=== PATIENT | female | born 1975 | race Caucasian/White ===

== ENCOUNTER 2017-10-30 21:12 | Emergency (ER) | payer BC ==
[2017-10-30 22:21] LABS: #Basophils 0.1 thou/uL (0.0-0.2); #Eosinphils 0.2 thou/uL (0.0-0.7); #Lymphocytes 3.7 thou/uL (1.20-3.40); #Monocytes 1.2 thou/uL (0.11-0.59); #Neutrophils 6.3 thou/uL (1.40-6.50); %Basophils 0.6 % (0.0-1.0); %Eosinophils 1.7 % (0.0-10.0); %Lymphocytes 32.5 % (21.0-51.0); %Monocytes 10.1 % (0.0-10.0); %Neutrophils 55.1 % (42.0-75.0); Hemoglobin 14.2 g/dL (12.0-16.0); Mean Corpuscular HGB CONC 33.5 g/dL (32.0-36.0); Mean Corpuscular Hemoglobin 29.4 pg (27.0-31.0); Mean Corpuscular Volume 87.8 fl (81.0-99.0); Mean Platelet Volume 6.9 fL (7.4-10.4); Platelet Count 396 thou/uL (130-400); RBC Distribution Width 11.4 % (11.5-14.5); Red Blood Cell (RBC) Count 4.83 mill/uL (4.20-5.40); White Blood Cell (WBC) Count 11.4 thou/uL (4.8-10.8)
[2017-10-30 22:41] LABS: ALT (SGPT) 47 U/L (8-55); AST (SGOT) 28 U/L (5-34); Albumin 4.2 g/dL (3.5-5.0); Alkaline Phosphatase 72 U/L (40-150); Anion Gap 13 mmol/L (10-20); BUN (Urea Nitrogen) 13 mg/dL (7.0-18.7); Bilirubin, Total 0.4 mg/dL (0.2-1.2); Calc. Creatinine Clearance 0 mL/min (70-130); Calcium 9.1 mg/dL (7.8-10.44); Carbon Dioxide 25 mmol/L (22-29); Chloride 105 mmol/L (98-107); Estimated GFR-MDRD 77; Globulin 3.3 g/dL (2.4-3.5); Glucose 134 mg/dL (70-105); Potassium 3.6 mmol/L (3.5-5.1); Protein, Total 7.5 g/dL (6.0-8.3); Sodium 139 mmol/L (136-145)
[2017-10-30 23:43] LABS: CKMB 1.2 ng/mL (0-6.6); Troponin I Less than 0.010 ng/mL (< 0.028)
--- NOTE | 2017-10-31 | RAD ---
PORTABLE UPRIGHT FRONTAL CHEST RADIOGRAPH 10/30/17 COMPARISON: None. HISTORY: Left arm pain and nausea, chest wall pain. FINDINGS: Lungs are clear. Heart and mediastinal contours are grossly unremarkable. IMPRESSION: No acute findings. POS: [facility]
--- NOTE | 2017-11-02 18:04 | EKG ---
Test Reason : Blood Pressure : / mmHG Vent. Rate : 090 BPM Atrial Rate : 090 BPM P-R Int : 146 ms QRS Dur : 088 ms QT Int : 374 ms P-R-T Axes : 021 -12 009 degrees QTc Int : 457 ms Normal sinus rhythm Moderate voltage criteria for LVH, may be normal variant Nonspecific ST and T wave abnormality Abnormal ECG Confirmed by LITZY PLUNKETT, VERNELL ([id number]), purchasing expeditor WATSON AMADO ([id number]) on 11/02/2017 6:03:40 PM Referred By: Confirmed By:VERNELL MCGHEE MD
== END 2017-10-31 00:21 | disposition home or self-care (01) ==
LOC: ERS 21:12
DX: R07.89 Other chest pain (principal); F98.8 Other specified behavioral and emotional disorders with onset usually occurring in childhood and adolescence; F41.9 Anxiety disorder, unspecified; I10 Essential (primary) hypertension; Z79.899 Other long term (current) drug therapy
CPT/HCPCS: 36415; 71045; 80053; 82553; 84484; 85025; 93005

== ENCOUNTER 2019-04-22 08:11 | Outpatient (CLI) | payer BC ==
--- NOTE | 2019-04-22 09:52 | CT ---
CT ABDOMEN WITH IV CONTRAST: INDICATION: Abdominal distention. FINDINGS: Lung bases clear. Liver, spleen, and pancreas unremarkable. Stomach and duodenum unremarkable. Post cholecystectomy clips are noted. Adrenal glands normal. Kidneys unremarkable. Visualized bowel loops unremarkable. Small and large bowel are not adequately evaluated on this abdo men-only exam. Etiology for abdominal distention is not apparent on the abdomen study; however, lowe r abdomen and pelvis are not assessed on this exam. Aorta is normal caliber. IMPRESSION: Unremarkable CT abdomen. POS: [facility]
== END 2019-04-22 08:12 | disposition home or self-care (01) ==
LOC: BICCT 08:11
PROVIDERS: ATTEND Family Medicine
DX: E16.1 Other hypoglycemia (principal); R14.0 Abdominal distension (gaseous)
CPT/HCPCS: 74160

== ENCOUNTER 2019-06-08 10:34 | Emergency (ER) | payer BC ==
[2019-06-08 11:18] LABS: #Eosinphils 0.1 thou/uL (0.0-0.7); #Monocytes 0.8 thou/uL (0.11-0.59); #Neutrophils 6.4 thou/uL (1.40-6.50); %Basophils 0.4 % (0.0-1.0); %Eosinophils 1.2 % (0.0-10.0); %Monocytes 7.8 % (0.0-10.0); %Neutrophils 61.7 % (42.0-75.0); Hemoglobin 15.2 g/dL (12.0-16.0); Mean Corpuscular HGB CONC 33.5 g/dL (32.0-36.0); Mean Corpuscular Hemoglobin 29.9 pg (27.0-31.0); Platelet Count 453 thou/uL (130-400); RBC Distribution Width 11.1 % (11.5-14.5); Red Blood Cell (RBC) Count 5.08 mill/uL (4.20-5.40); White Blood Cell (WBC) Count 10.4 thou/uL (4.8-10.8)
--- NOTE | 2019-06-08 11:39 | RAD ---
CHEST 1 VIEW: Date: 06/08/19 HISTORY: Chest pain. COMPARISON: Radiograph dated 10/30/17. FINDINGS: Lungs are clear. No pneumothorax or effusion. Cardiac silhouette and mediastinal contour within nadiya l limits. IMPRESSION: No acute intrathoracic abnormality. POS: [facility]
[2019-06-08 11:42] LABS: ALT (SGPT) 23 U/L (8-55); AST (SGOT) 16 U/L (5-34); Albumin 4.5 g/dL (3.5-5.0); Alkaline Phosphatase 67 U/L (40-110); Anion Gap 13 mmol/L (10-20); BUN (Urea Nitrogen) 12 mg/dL (7.0-18.7); Bilirubin, Total 0.5 mg/dL (0.2-1.2); Calc. Creatinine Clearance 0 mL/min (70-130); Calcium 9.6 mg/dL (7.8-10.44); Carbon Dioxide 29 mmol/L (22-29); Chloride 101 mmol/L (98-107); Estimated GFR-MDRD 61; Globulin 2.9 g/dL (2.4-3.5); Glucose 94 mg/dL (70-105); Potassium 5.2 mmol/L (3.5-5.1); Protein, Total 7.4 g/dL (6.0-8.3); Sodium 138 mmol/L (136-145)
--- NOTE | 2019-06-13 13:41 | EKG ---
Test Reason : CHESTPAIN Blood Pressure : / mmHG Vent. Rate : 071 BPM Atrial Rate : 071 BPM P-R Int : 146 ms QRS Dur : 086 ms QT Int : 386 ms P-R-T Axes : 026 -14 004 degrees QTc Int : 419 ms Normal sinus rhythm Voltage criteria for left ventricular hypertrophy Abnormal ECG Confirmed by RIZWAN HASTINGS ([id number]), metropolitan editor WATSON AMADO ([id number]) on 06/13/2019 1:41:14 PM Referred By: Confirmed By:RIZWAN HASTINGS
== END 2019-06-08 12:44 | disposition home or self-care (01) ==
LOC: ERS 10:34
DX: R07.89 Other chest pain (principal); R00.2 Palpitations; I10 Essential (primary) hypertension; F98.8 Other specified behavioral and emotional disorders with onset usually occurring in childhood and adolescence; F41.9 Anxiety disorder, unspecified; Z79.899 Other long term (current) drug therapy
CPT/HCPCS: 36415; 71045; 80053; 84484; 85025; 93005

== ENCOUNTER 2019-07-29 09:48 | Outpatient (CLI) | payer BC ==
--- NOTE | 2019-07-30 10:25 | NM ---
RADIO-IODONE THYROID UPTAKE AND SCAN: HISTORY: Abnormal results of thyroid function tests. Third generation TSH measures 1.0861 on 07/15/2019 (nadiya l range is 0.35-4.94). RADIOPHARMACEUTICAL: Iodine-123 223 microcuries administered orally. FINDINGS: Homogeneous tracer distribution is seen to both lobes of the thyroid gland without focal cold or hot nodules. The 24-hour radio-iodine uptake measures 20% (normal 10%-30%). IMPRESSION: Normal examination. POS: [facility]
== END 2019-07-29 09:49 | disposition home or self-care (01) ==
LOC: NM 09:48
PROVIDERS: ATTEND Family Medicine
DX: R94.6 Abnormal results of thyroid function studies (principal)
CPT/HCPCS: 78014

== ENCOUNTER 2019-08-16 20:30 | Outpatient (CLI) | payer BC | END 2019-08-16 20:31 | disposition home or self-care (01) | LOC: SLEEPLAB 20:30 | PROVIDERS: ATTEND Family Medicine | DX: G47.33 Obstructive sleep apnea (adult) (pediatric) (principal); G47.9 Sleep disorder, unspecified; G47.10 Hypersomnia, unspecified; R53.83 Other fatigue; R40.0 Somnolence; R06.83 Snoring; G31.84 Mild cognitive impairment of uncertain or unknown etiology; I10 Essential (primary) hypertension; E66.9 Obesity, unspecified | CPT/HCPCS: 95810 ==

== ENCOUNTER 2019-08-26 20:30 | Outpatient (CLI) | payer BC | END 2019-08-26 20:31 | disposition home or self-care (01) | LOC: SLEEPLAB 20:30 | PROVIDERS: ATTEND Family Medicine | DX: G47.33 Obstructive sleep apnea (adult) (pediatric) (principal); R06.83 Snoring; R09.89 Other specified symptoms and signs involving the circulatory and respiratory systems; R53.83 Other fatigue; R40.0 Somnolence; F51.9 Sleep disorder not due to a substance or known physiological condition, unspecified; G47.10 Hypersomnia, unspecified; G47.9 Sleep disorder, unspecified; I10 Essential (primary) hypertension; E66.9 Obesity, unspecified; Z68.41 Body mass index [BMI] 40.0-44.9, adult | CPT/HCPCS: 95811 ==

== ENCOUNTER 2021-02-24 13:28 | Outpatient (CLI) | payer BC | END 2021-02-24 13:29 | disposition home or self-care (01) | LOC: BICCT 13:28 | PROVIDERS: ATTEND Family Medicine | DX: Q04.6 Congenital cerebral cysts (principal); R51.9 Headache, unspecified | CPT/HCPCS: 70450 ==

== ENCOUNTER 2021-06-09 13:45 | Outpatient (CLI) | payer BC | END 2021-06-09 13:46 | disposition home or self-care (01) | LOC: DTY/OP 13:45 | PROVIDERS: ATTEND Specialist | DX: Z01.818 Encounter for other preprocedural examination (principal); E66.01 Morbid (severe) obesity due to excess calories | CPT/HCPCS: 97802 ==

== ENCOUNTER 2021-08-14 09:30 | Inpatient (IN) | payer BC ==
[2021-08-16 09:44] VITALS: BMI 38.0
[2021-08-17] MEDS ORDERED: cefOXitin Sodium/Dextrose 2 GM/50 ML BAG ONE (06:34)
[2021-08-17] MEDS ORDERED: Heparin 5,000 UNITS/ML VIAL ONE (06:34)
[2021-08-17] MEDS ORDERED: Acetaminophen 500 MG TAB ONE (06:35)
[2021-08-17] MEDS ORDERED: Scopolamine 1.5 mg/72 hour Patch ONE (06:35)
[2021-08-17] MEDS ORDERED: Ketorolac Tromethamine 30 MG/ML VIAL ONE ×2 (06:35→07:41)
[2021-08-17] MEDS ORDERED: Lidocaine 1% w/Epinephrine 1:100K 20 ML VIAL ONE (06:43)
[2021-08-17] MEDS ORDERED: Bupivacaine 0.25% 10 ML VIAL ONE (06:43)
[2021-08-17] MEDS ORDERED: Fentanyl 100 MCG/2 ML VIAL ONE ×4 (06:59→12:40)
[2021-08-17] MEDS ORDERED: Dexmedetomidine 200 MCG/2 ML VIAL ONE (06:59)
[2021-08-17] MEDS ORDERED: Ondansetron PF 4 MG/2 ML Vial ONE (07:41)
[2021-08-17] MEDS ORDERED: Rocuronium Bromide 10 MG/ML (10ML VIAL) ONE (07:41)
[2021-08-17] MEDS ORDERED: PROPOFOL 200 MG/20 ML VIAL ONE (07:41)
[2021-08-17] MEDS ORDERED: Glycopyrrolate 0.2 MG/ML 5 ML SYRINGE ONE (07:41)
[2021-08-17] MEDS ORDERED: Lidocaine 1% PF 5 ML VIAL ONE (07:41)
[2021-08-17] MEDS ORDERED: Dexamethasone 20 MG/5 ML VIAL ONE (07:41)
[2021-08-17] MEDS ORDERED: ePHEDrine 50 MG/ML VIAL ONE (07:41)
[2021-08-17] MEDS ORDERED: Ondansetron HCl/PF 4 MG/2 ML Vial IVP PRN (10:25)
[2021-08-17] MEDS ORDERED: Promethazine HCl 25 MG/ML VIAL IM PRN ×2 (10:25→10:40)
[2021-08-17] MEDS ORDERED: Meperidine HCl/PF 25 MG/ML VIAL SLOW IVP PRN (10:25)
[2021-08-17] MEDS ORDERED: HYDROmorphone 2 MG/ML VIAL SLOW IVP PRN (10:25)
[2021-08-17] MEDS ORDERED: Promethazine HCl 25 MG/ML VIAL IVPB PRN (10:25)
[2021-08-17] MEDS ORDERED: Hydrocodone-Acetamin 15 ML UDCUP PO PRN (10:40)
[2021-08-17] MEDS ORDERED: hydrALAZINE 20 MG/ML VIAL SLOW IVP PRN (10:40)
[2021-08-17] MEDS ORDERED: diphenhydrAMINE 50 MG/ML VIAL IVP PRN (10:40)
[2021-08-17] MEDS ORDERED: Dextrose 5% in Water 1,000 ML IV PRN (10:40)
[2021-08-17] MEDS ORDERED: Dextrose 50% Abboject 50 ML SYRINGE SLOW IVP PRN (10:40)
[2021-08-17] MEDS ORDERED: Ondansetron PF 4 MG/2 ML Vial IVP PRN (10:40)
[2021-08-17] MEDS ORDERED: Pantoprazole 40 MG VIAL IVP SCH (11:00)
[2021-08-17] MEDS ORDERED: Morphine 4 MG/ML VIAL SLOW IVP PRN (11:00)
[2021-08-17] MEDS ORDERED: Metoprolol Tartrate 50 MG TAB PO SCH (11:15)
[2021-08-17] MEDS ORDERED: Venlafaxine HCl XR 150 MG CAP PO SCH (11:15)
[2021-08-17] MEDS ORDERED: Azelastine 137 MCG/Spray 30 ML NS SCH (11:15)
[2021-08-17] MEDS: Ketorolac Tromethamine 30 MG/ML VIAL IVP SCH ×2 (13:59→17:37)
[2021-08-17] MEDS ORDERED: Morphine 4 MG/ML VIAL ONE (14:01)
[2021-08-17] MEDS: Morphine 4 MG/ML VIAL SLOW IVP PRN ×3 (14:02→21:15)
[2021-08-17] MEDS: Venlafaxine HCl XR 150 MG CAP PO SCH (15:58)
[2021-08-17] MEDS: D5 1/2 NS w/20 mEq KCL 1,000 ML IV SCH ×2 (16:01→19:59)
[2021-08-17] MEDS: Azelastine 137 MCG/Spray 30 ML NS SCH (20:37)
[2021-08-17] MEDS: Metoprolol Tartrate 50 MG TAB PO SCH (20:38)
[2021-08-17] MEDS ORDERED: Enoxaparin Sodium 40 MG/0.4 ML SYRINGE SC SCH (21:00)
[2021-08-18] MEDS: D5 1/2 NS w/20 mEq KCL 1,000 ML IV SCH ×2 (00:14→08:08)
[2021-08-18] MEDS: Ketorolac Tromethamine 30 MG/ML VIAL IVP SCH ×3 (00:14→11:17)
[2021-08-18 05:33] LABS: #Monocytes 1.5 thou/uL (0.11-0.59); #Neutrophils 11.5 thou/uL (1.40-6.50); %Basophils 0.1 % (0.0-1.0); %Eosinophils 0.2 % (0.0-10.0); %Lymphocytes 13.3 % (21.0-51.0); %Monocytes 10.1 % (0.0-10.0); %Neutrophils 76.3 % (42.0-75.0); Hemoglobin 14.2 g/dL (12.0-16.0); Mean Corpuscular HGB CONC 32.5 g/dL (32.0-36.0); Mean Corpuscular Hemoglobin 30.2 pg (27.0-31.0); Mean Platelet Volume 6.6 fL (7.4-10.4); Platelet Count 375 thou/uL (130-400); RBC Distribution Width 12.1 % (11.5-14.5); Red Blood Cell (RBC) Count 4.71 mill/uL (4.20-5.40); White Blood Cell (WBC) Count 15.1 thou/uL (4.8-10.8)
[2021-08-18 05:54] LABS: Anion Gap 11 mmol/L (10-20); BUN (Urea Nitrogen) 11 mg/dL (7.0-18.7); Calc. Creatinine Clearance 123 mL/min (70-130); Calcium 9.2 mg/dL (7.8-10.44); Carbon Dioxide 27 mmol/L (22-29); Chloride 106 mmol/L (98-107); Glucose 132 mg/dL (70-105); Potassium 5.2 mmol/L (3.5-5.1); Sodium 139 mmol/L (136-145)
[2021-08-18] MEDS: Venlafaxine HCl XR 150 MG CAP PO SCH (08:07)
[2021-08-18] MEDS: Metoprolol Tartrate 50 MG TAB PO SCH (08:08)
[2021-08-18] MEDS ORDERED: Pantoprazole 40 MG VIAL IVP SCH (09:00)
[2021-08-18] MEDS: Azelastine 137 MCG/Spray 30 ML NS SCH (09:55)
[2021-08-18 11:17] VITALS: BP 99/76; TEMP 98.2
== END 2021-08-18 12:21 | disposition home or self-care (01) | DRG 621 ==
LOC: EDSTATUS 09:30 → SURG A 08-17 06:10 → SURG B 08-17 15:30
PROVIDERS: ADMIT Specialist; ATTEND Specialist
PROC: 0D164ZA Bypass Stomach to Jejunum, Percutaneous Endoscopic Approach (ICD-10-PCS; principal; 2021-08-17)
DX: E66.01 Morbid (severe) obesity due to excess calories (principal); Z20.822 Contact with and (suspected) exposure to COVID-19; I10 Essential (primary) hypertension; K44.9 Diaphragmatic hernia without obstruction or gangrene; E11.9 Type 2 diabetes mellitus without complications; F41.9 Anxiety disorder, unspecified; F32.A Depression, unspecified; Z68.38 Body mass index [BMI] 38.0-38.9, adult; Z79.84 Long term (current) use of oral hypoglycemic drugs; Z79.899 Other long term (current) drug therapy
CPT/HCPCS: 36415; 36416; 80048; 85025; C1776; C1889; C9113; J0694; J1100; J1644; J1650; J1885; J2270; J2405; J2704; J3010; J3480; J3490; S0020; U0003; U0005

== ENCOUNTER 2021-08-14 09:42 | Outpatient (CLI) | payer BC ==
[2021-08-14 11:29] LABS: #Eosinphils 0.2 10x3/uL (0.0-0.5); #Monocytes 0.9 10x3/uL (0.0-1.1); #Neutrophils 4.8 10x3/uL (1.5-8.4); %Basophils 0.3 % (0.0-2.0); %Eosinophils 2.3 % (0.0-6.0); %Lymphocytes 24.7 % (18.0-47.0); %Monocytes 11.7 % (0.0-10.0); %Neutrophils 60.6 % (40.0-75.0); Hemoglobin 13.6 g/dL (12.0-15.5); Mean Corpuscular HGB CONC 32.1 g/dL (32.0-36.0); Mean Corpuscular Hemoglobin 28.9 pg (27.0-33.0); Mean Corpuscular Volume 90.2 fl (81.6-98.3); Platelet Count 388 10x3/uL (150-450); White Blood Cell (WBC) Count 7.9 10x3/uL (3.5-10.5)
[2021-08-14 11:45] LABS: Anion Gap 17 mmol/L (10-20); BUN (Urea Nitrogen) 14 mg/dL (7.0-18.7); Calc. Creatinine Clearance 0 mL/min (70-130); Calcium 9.3 mg/dL (7.8-10.44); Carbon Dioxide 27 mmol/L (22-29); Chloride 102 mmol/L (98-107); Glucose 99 mg/dL (70-105); Sodium 141 mmol/L (136-145)
[2021-08-15 11:00] LABS: SARS-CoV-2 PCR by NAA Not Detected (NotDetected)
== END 2021-08-14 09:43 | disposition home or self-care (01) ==
LOC: LABBT 09:42
PROVIDERS: ATTEND Specialist
DX: Z01.812 Encounter for preprocedural laboratory examination (principal); E66.01 Morbid (severe) obesity due to excess calories; Z20.822 Contact with and (suspected) exposure to COVID-19
CPT/HCPCS: 80048; 85025; U0003; U0005

== ENCOUNTER 2025-08-19 09:37 | Outpatient (CLI) | payer BC | END 2025-08-19 09:38 | disposition home or self-care (01) | LOC: SCSMRI 09:37 | PROVIDERS: ATTEND Family Medicine | DX: Q04.6 Congenital cerebral cysts (principal); G93.9 Disorder of brain, unspecified | CPT/HCPCS: 70553; 76376 ==